=== PATIENT | female | born 1985 | race Caucasian/White ===

== ENCOUNTER 2018-02-01 08:13 | Emergency (ER) | payer BC ==
[2018-02-01 08:42] LABS: Bilirubin Negative (Negative); Blood, Urine Moderate (Negative); Clarity CLEAR (Clear); Glucose, Urine (Dipstick) Negative (Negative); Leukocyte Small (Negative); Nitrite Negative (Negative); Protein, Urine (Dipstick) Negative (Neg-Trace); Specific Gravity, Urine 1.009 (1.002-1.036); Urobilinogen 0.2 mg/dL (0.2-1.0)
[2018-02-01 08:43] LABS: Pregnancy Test - Urine (BHCG) Negative (Negative); Pregu Control Background? CLEAR/WHITE (CLR/WHITE); Pregu Control Bar Appear? YES (CONTROL BAR); Specific Gravity 1.009 (1.002-1.036)
[2018-02-01 08:44] LABS: Bacteria/HPF Rare-Few HPF (None Seen); Hyaline Casts/LPF 0-3 HYALINE CAST LPF (0-3 Hyaline); Pathc Cast-AUWi Flag 0.27 (0-2.49); RBC/HPF 0-3 HPF (0-3)
[2018-02-01 09:05] LABS: #Eosinphils 0.2 thou/uL (0.0-0.7); #Lymphocytes 1.1 thou/uL (1.20-3.40); #Monocytes 0.5 thou/uL (0.11-0.59); %Basophils 0.3 % (0.0-1.0); %Lymphocytes 7.5 % (21.0-51.0); %Monocytes 3.4 % (0.0-10.0); %Neutrophils 87.7 % (42.0-75.0); Hemoglobin 13.6 g/dL (12.0-16.0); Mean Corpuscular HGB CONC 33.8 g/dL (32.0-36.0); Mean Corpuscular Hemoglobin 30.3 pg (27.0-31.0); Mean Corpuscular Volume 89.7 fl (81.0-99.0); Mean Platelet Volume 6.7 fL (7.4-10.4); Platelet Count 213 thou/uL (130-400); RBC Distribution Width 12.4 % (11.5-14.5); Red Blood Cell (RBC) Count 4.49 mill/uL (4.20-5.40); White Blood Cell (WBC) Count 14.8 thou/uL (4.8-10.8)
[2018-02-01 09:26] LABS: ALT (SGPT) 19 U/L (8-55); AST (SGOT) 21 U/L (5-34); Albumin 4.1 g/dL (3.5-5.0); Alkaline Phosphatase 47 U/L (40-150); Anion Gap 11 mmol/L (10-20); BUN (Urea Nitrogen) 8 mg/dL (7.0-18.7); Bilirubin, Total 0.7 mg/dL (0.2-1.2); Calc. Creatinine Clearance 0 mL/min (70-130); Calcium 8.8 mg/dL (7.8-10.44); Carbon Dioxide 21 mmol/L (22-29); Chloride 108 mmol/L (98-107); Estimated GFR-MDRD 90; Globulin 2.4 g/dL (2.4-3.5); Glucose 95 mg/dL (70-105); Potassium 3.8 mmol/L (3.5-5.1); Protein, Total 6.5 g/dL (6.0-8.3); Sodium 136 mmol/L (136-145)
[2018-02-01] MEDS ORDERED: Morphine 4 MG/ML VIAL ONE (09:47)
--- NOTE | 2018-02-01 10:56 | ULT ---
PELVIC ULTRASOUND INCLUDING TRANSABDOMINAL AND TRANSVAGINAL AND VASCULAR DUPLEX WITH COLOR AND SPECTR LA DOPPLER IMAGING: HISTORY: A 32-year-old female with a history of pain. History of a mass on a prior CT. FINDINGS: The uterus measures 8.8 x 4.7 x 5.2 cm in size. Endometrium is 1.2 cm in thickness. The right ovary measures 2.0 x 2.9 x 3.1 cm. The left ovary measures 1.6 x 1.9 x 1.8 cm. There is some cul-de-sac fluid. Vascular duplex with color and spectral Doppler imaging demonstrates arterial inflow and venous outfl ow. No evidence for ovarian torsion. IMPRESSION: Some free cul-de-sac fluid. No evidence of solid or cystic mass. No evidence for a right ovarian or right adnexal mass. POS: [facility]
--- NOTE | 2018-02-01 11:27 | CT ---
CT ABDOMEN AND PELVIS: Date: 02/01/18 COMPARISON: None. HISTORY: Pain. TECHNIQUE: Serial axial CT imaging at 5 mm intervals from lung bases through pubic symphysis with IV contrast. C oronal reformatted imaging obtained. FINDINGS: The lack of oral contrast limits assessment of the bowel. Imaged lung bases are unremarkable. Cholecy stectomy clips are present. There is no free intraperitoneal air noted. The hepatic parenchyma is somewhat hypodense, which may signify steatosis. No focal liver lesion. The spleen, pancreas, adrenal glands, and kidneys are unremarkable. There is small volume free fluid in the pelvic cul-de-sac and in the right adnexal region. There is a lso small volume free fluid in the right lower quadrant along the inferior aspect of the right paraco lic gutter. No focal area of bowel inflammatory change or obstruction. Appendix is normal. There is a rim enhancing 1.7 cm structure in the region of the right adnexa/ovary, suggesting a colla psed cyst, possibly recently ruptured given free fluid in the pelvis. Vascular structures appear patent. No lymphadenopathy is seen. Osseous structures demonstrate no worrisome findings. IMPRESSION: Oval rim enhancing 1.7 cm structure in the region of the right ovary/right adnexa. Free fluid in the pelvis. Findings suggest recent right ovarian cyst rupture in the proper clinical context. No evidenc e for bowel obstruction, free intraperitoneal air, or appendicitis. POS: [facility]
[2018-02-01] MEDS ORDERED: HYDROcodone/Acetaminophen 5/325 mg Tablet ONE (12:20)
[2018-02-01] MEDS ORDERED: ISOVUE-370 76%-LOCM 1 ML ONE (13:34)
== END 2018-02-01 12:50 | disposition home or self-care (01) ==
LOC: ERS 08:13
DX: N83.201 Unspecified ovarian cyst, right side (principal); F17.210 Nicotine dependence, cigarettes, uncomplicated
CPT/HCPCS: 36415; 74177; 76856; 80053; 81003; 81015; 81025; 85025; 87086; 96374; J2270

== ENCOUNTER 2018-07-03 22:45 | Observation (INO) | payer BC ==
[2018-07-03 23:56] LABS: Troponin I Less than 0.010 ng/mL (< 0.028)
[2018-07-04] MEDS ORDERED: Ondansetron ODT 4 MG TAB SL PRN (02:04)
[2018-07-04] MEDS ORDERED: Ondansetron HCl/PF 4 MG/2 ML Vial IVP PRN ×2 (02:04→10:30)
[2018-07-04] MEDS ORDERED: Sodium Chloride 0.9% 1,000 ML IV SCH (02:04)
[2018-07-04] MEDS: Acetaminophen 325 MG TAB PO PRN ×2 (02:48→08:06)
[2018-07-04 02:56] LABS: Troponin I Less than 0.010 ng/mL (< 0.028)
[2018-07-04 03:22] VITALS: BMI 25.2
[2018-07-04 06:06] LABS: Troponin I 0.011 ng/mL (< 0.028)
[2018-07-04] MEDS ORDERED: Ondansetron ODT 4 MG TAB PO PRN (10:30)
[2018-07-04] MEDS ORDERED: Acetaminophen 500 MG TAB PO PRN (10:30)
--- NOTE | 2018-07-04 11:06 | HP ---
DATE OF ADMISSION: 07/04/2018 PRIMARY CARE PROVIDER: [place] vee. CHIEF COMPLAINT: Chest pain. HISTORY OF PRESENT ILLNESS: This is a 33-year-old female who presents to [facility] Emergency Department after complaining of central chest pain with radiation into the left jaw occurring in the last 24 hours. The patient states she was shopping at [employer], doing shop ping at [employer], once symptoms began stopping her from shopping. The patient states she rested on a chair as the pain lasted for approximately 5 minutes. The patient denied any nausea, vomiting, diaph oresis or left arm discomfort. The patient denies any cough, congestion, fever or exposure history. Patient states she left this store aside in her car at which symptoms resolved. The patient denied any recent trauma, injury, but does admit to increased stress with recent divorce as well as social s tressors at home. The patient initially rated the pain as 9/10. The patient states she did not take any aspirin at the time of her chest pain. The patient does admit to reflux symptoms, which have be en progressive over the last several weeks, taking Tums for relief. The patient has noticed increase d reflux, especially when lying flat or sleeping. The patient denies any strong family history of ea rly coronary artery disease, but does state her mother underwent a repair of a congenital ASD defect in her 30s. The patient denies any unilateral weakness, weight changes, blood in the stool or dysuri a. The patient denies any personal history of arrhythmia or coronary artery disease. In the emergen cy room, the patient underwent general evaluation, essentially negative troponins, negative cardiac b iomarkers. The patient was referred to the observation unit for evaluation. PAST MEDICAL HISTORY: 1. Gastroesophageal reflux. 2. History of cholelithiasis. PAST SURGICAL HISTORY: 1. Status post cholecystectomy. 2. Status post bilateral tubal ligation. CURRENT MEDICATIONS: Reviewed and negative. ALLERGIES: No known drug allergies. FAMILY HISTORY: Mother with ASDD, congenital defect repaired in her 30s. SOCIAL HISTORY: The patient recently . Occasional alcohol use. Smokes up to a pack of ciga rettes daily. No illicit drug use. Has 2 children. REVIEW OF SYSTEMS: The following complete review of systems was negative, unless otherwise mentioned in the HPI or below: Constitutional: Weight loss or gain, ability to conduct usual activities. Skin: Rash, itching. Eyes: Double vision, pain. ENT/Mouth: Nose bleeding, neck stiffness, pain, tenderness. Cardiovascular: Palpitations, dyspnea on exertion, orthopnea. Respiratory: Shortness of breath, wheezing, cough, hemoptysis, fever or night sweats. Gastrointestinal: Poor appetite, abdominal pain, heartburn, nausea, vomiting, constipation, or diarr hea. Genitourinary: Urgency, frequency, dysuria, nocturia. Musculoskeletal: Pain, swelling. Neurologic/Psychiatric: Anxiety, depression. Allergy/Immunologic: Skin rash, bleeding tendency. Otherwise negative except as stated per HPI. PHYSICAL EXAMINATION: VITAL SIGNS: On admission, blood pressure 159/89, pulse 72, respiratory rate 18, temperature 99.3 de grees Fahrenheit, O2 saturation 100% on room air. GENERAL APPEARANCE: This is a 33-year-old female, alert and oriented x3, pleasant, convers ant, in no acute distress. HEENT: Pupils are equal, round, and reactive to light and accommodation. Extraocular muscles are in tact. No scleral icterus, no conjunctival injection. Nares patent. OP is clear. Teeth in good rep air. NECK: Supple, no cervical adenopathy, no thyromegaly, no carotid bruits, no JVD appreciated. Cervic al spine with full active and passive range of motion. No meningeal signs appreciated. CHEST: Lungs are clear to auscultation bilaterally. CARDIOVASCULAR: S1 and S2 without noted murmur, rub or gallop. ABDOMEN: Rounded, soft, nontender, nondistended. Bowel sounds are positive in all four quadrants. There is no hepatosplenomegaly, no abdominal bruits, no rebound or guarding appreciated. EXTREMITIES: Warm and dry with fair turgor. No clubbing, cyanosis or asymmetric edema appreciated. Pulses palpable distally at the dorsalis pedis, posterior tibial, and popliteal arteries bilaterally . Capillary refill is less than 2 seconds. NEUROLOGIC: Cranial nerves II-XII are grossly intact. No focal or lateralizing signs appreciated. PERTINENT LABORATORY DATA AND X-RAY FINDINGS: Potassium 3.3, magnesium 2.3. LFTs within normal limi ts. Troponin I negative x3. TSH 1.13. CBC within normal limits. Portable chest x-ray dated 2017 showed no acute cardiopulmonary process. EKG dated 07/03/2018 by my interpretation shows sinus tachycardia with heart rates in the low 100s. Normal R-wave progression noted in the precordial lead s. Isolated T-wave inversion in leads III and F. ASSESSMENT AND PLAN: 1. Chest pain. Patient will be observed on the telemetry unit. Initial serial cardiac enzymes nega tive x3. We will proceed with exercise treadmill stress testing. No current evidence to suggest acu te coronary syndrome. 2. Gastroesophageal reflux. Initiate Pepcid 20 mg p.o. b.i.d. Likely the patient will benefit from proton pump inhibitor on discharge. 3. Tobacco use. We will offer smoking cessation resources prior to discharge. 4. Hypokalemia. Mild, potassium supplementation. 5. Prophylaxis. Sequential compression devices while in bed. Pepcid 20 mg p.o. b.i.d. 6. Code status is FULL. Surrogate medical decision maker is the patient's mother.
[2018-07-04 15:28] VITALS: BP 110/69; TEMP 97.7
[2018-07-04] MEDS ORDERED: Famotidine 20 MG TAB PO SCH (21:00)
--- NOTE | 2018-07-04 23:33 | DIS ---
DATE OF ADMISSION: 07/04/2018 DATE OF DISCHARGE: 07/04/2018 DISCHARGE DIAGNOSES: 1. Chest pain, atypical, noncardiac. 2. Gastroesophageal reflux. 3. Tobacco use. 4. Hypokalemia, mild. CONSULTATIONS: None. PERTINENT LABORATORY AND X-RAY FINDINGS: Potassium is 3.3. Troponin I is negative x4. TSH is 1.13. LFTs are within normal limits. Portable chest x-ray dated 07/03/2018 showed no acute cardiopulmona ry process. HOSPITAL COURSE: The patient was observed on the telemetry unit after initially presenting with ches t pain. Serial cardiac biomarkers were negative x4 as stated previously. The patient proceeded with performing a Apollo protocol graded exercise treadmill test with negative EKG changes. The patient h ad normal blood pressure and heart rate response achieving 87% of maximal age-predicted heart rate. Telemetry monitoring showed sinus mechanism without evidence of acute arrhythmia or dysrhythmia. The patient's presentation consistent with gastroesophageal reflux and likely esophageal spasm. Current recommendations are to initiate Protonix 40 mg daily. I have examined the patient at the time of goyo soto and discussed followup instructions. The patient is overall clinically stable and ready for discharge on 07/04/2018. DISCHARGE MEDICATIONS: Protonix 40 mg 1 tab p.o. daily. FOLLOWUP: The patient is to follow up with her primary care provider of choice in [place], [place] as needed. CONDITION ON DISCHARGE: Stable. ACTIVITY: Ad eri. DIET: Regular. CODE STATUS: FULL. DISPOSITION: Home, 07/04/2018.
--- NOTE | 2018-07-10 10:49 | STRESS ---
Acquisition Time: 2018-07-04 12:36:12 Total Exercise Time: 00:09:00 Test Indications: CHEST PAIN Medications: Protocol: RUI Max HR: 164 BPM 87% of Pred: 188 BPM Max BP: 138/088 mmHG Max Work Load: 10.1 METS RESTING ECG: NORMAL SINUS RHYTHM AT 84 BPM SYMPTOMS: DYSPNEA ON EXERTION NORMAL BP RESPONSE ECTOPY: NONE ECG STRESS: NO SIGNIFICANT CHANGES INTERPRETATION: NEGATIVE EXERCISE TREADMILL TEST ECG COMMENTS: EXERCISE 9 MINUTES/ PEAK HEART RATE 162 BPM Confirmed by MAREK PRADO ([id number]), editor publications DUONG TEMPLETON ([id number]) on 07/10/2018 10:48:34 AM Referred By: MD Elaina STEVENS Confirmed By:MAREK PRADO
== END 2018-07-04 18:00 | disposition home or self-care (01) ==
LOC: ERS 22:45 → 2SW 07-04 01:32
PROVIDERS: ADMIT Hospitalist; ATTEND Hospitalist
DX: R07.89 Other chest pain (principal); K21.9 Gastro-esophageal reflux disease without esophagitis; E87.6 Hypokalemia; F17.210 Nicotine dependence, cigarettes, uncomplicated; Z79.899 Other long term (current) drug therapy
CPT/HCPCS: 36415; 84484; 93005; 93017; 94760; A4216; G0378

== ENCOUNTER 2020-12-03 08:01 | Outpatient (CLI) | payer BC ==
[2020-12-03 18:22] LABS: BHCG - Serum Negative (NEGATIVE); Pregs Control Background? CLEAR/WHITE (CLR/WHITE); Pregs Control Bar Appear? YES (CONTROL BAR)
[2020-12-04 02:57] LABS: SARS-CoV-2 MS2 Positive; SARS-CoV-2 N Gene Negative; SARS-CoV-2 S Gene Negative; SARS-CoV-2 by NAA Not Detected (NotDetected); SARS-CoV-2 orf1ab Negative
== END 2020-12-03 08:02 | disposition home or self-care (01) ==
LOC: LABBT 08:01
PROVIDERS: ATTEND Obstetrics & Gynecology
DX: Z01.812 Encounter for preprocedural laboratory examination (principal); Z20.822 Contact with and (suspected) exposure to COVID-19; N80.0 Endometriosis of uterus
CPT/HCPCS: 84703; 87635; U0003; U0005

== ENCOUNTER 2020-12-08 05:44 | Day surgery (SDC) | payer OTHER ==
[2020-12-07 09:44] VITALS: BMI 24.7
--- NOTE | 2020-12-08 05:51 | HP ---
REASON FOR ADMISSION: Total laparoscopic hysterectomy, bilateral salpingectomy for dyspareunia, dysmenorrhea, history of dysplasia, and probable adenomyosis. HISTORY OF PRESENT ILLNESS: Ms. Pastrana is a 35-year-old 2, para 2, status post BTL with a history of dysplasia in the past. She has persistent dyspareunia, dysmenorrhea, consistent with adenomyosis, unresponsive to conservative management. She desires definitive surgical management. 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 History of dysplasia in the past, none recently. History of genital herpes, on acyclovir. She has had a LEEP back in 2004. She is status post BTL, status post x2. SURGICAL HISTORY: LEEP, tubal ligation, and cholecystectomy. MEDICAL HISTORY: Genital herpes. MEDICATIONS: Valtrex, fluoxetine, and Atrovent. ALLERGIES: NONE. SOCIAL HISTORY: Positive tobacco use. Denies alcohol or IV drug abuse. FAMILY HISTORY: Noncontributory. REVIEW OF SYSTEMS: Noncontributory. PHYSICAL EXAMINATION: GENERAL: White female, height 5 feet 3 inches, weight 140, BMI 24.6, blood pressure 130/80, pulse 58, respirations 18. HEENT: Within normal limits. LUNGS: Clear to auscultation bilaterally. HEART: Regular rate and rhythm. BREASTS: No masses bilaterally. ABDOMEN: Soft, nontender. No rebound or guarding. GENITOURINARY: Vulva without lesions. Vagina without discharge. Cervix, parous. Uterus, anteverted, slightly boggy, 6-week size, and tender. Adnexa, no masses. EXTREMITIES: No clubbing, cyanosis, or edema. DIAGNOSTIC DATA: Ultrasound as noted, findings consistent with adenomyosis with a 75 g uterus. No adnexal masses noted. Pap negative. GC, chlamydia negative at [facility] 2019. IMPRESSION: Persistent dyspareunia and dysmenorrhea suggestive of adenomyosis with status post permanent sterilization. PLAN: Discussed with the patient options including endometrial ablation, medical treatment and hysterectomy. Patient desires hysterectomy. We will proceed with total laparoscopic hysterectomy with da Gabriella and bilateral salpingectomy. The patient understands risks and benefits of procedure including bleeding, infection, and trauma to pelvic organs. She gives verbal and written informed consent for the procedure. Anticipate same-day discharge. Job ID: [id number]
[2020-12-08] MEDS ORDERED: Gabapentin 300 MG CAP ONE (06:12)
[2020-12-08] MEDS ORDERED: CeleCOXIB 100 MG CAP ONE (06:12)
[2020-12-08] MEDS ORDERED: Famotidine/PF 20 mg/2ml Vial ONE (06:12)
[2020-12-08] MEDS ORDERED: Midazolam HCl 2 mg/2 ml Vial ONE (06:35)
[2020-12-08] MEDS ORDERED: Fentanyl 100 MCG/2 ML VIAL ONE ×2 (06:35→09:13)
[2020-12-08 06:38] LABS: Hemoglobin 13.9 g/dL (12.0-16.0); Mean Corpuscular HGB CONC 34.1 g/dL (32.0-36.0); Mean Corpuscular Volume 90.9 fL (78.0-98.0); Mean Platelet Volume 7.3 fL (7.4-10.4); Platelet Count 241 thou/uL (130-400); RBC Distribution Width 12.4 % (11.5-14.5); Red Blood Cell (RBC) Count 4.49 mill/uL (4.20-5.40); White Blood Cell (WBC) Count 5.7 thou/uL (4.8-10.8)
[2020-12-08] MEDS ORDERED: Bupivacaine PF 0.5% 30 ML VIAL ONE (06:38)
[2020-12-08] MEDS ORDERED: EPINEPHrine 1 MG/ML AMP ONE (06:38)
[2020-12-08] MEDS ORDERED: Ondansetron PF 4 MG/2 ML Vial IVP PRN (08:51)
[2020-12-08] MEDS ORDERED: Promethazine HCl 25 MG/ML VIAL IM PRN (08:51)
[2020-12-08] MEDS ORDERED: Morphine 2 MG/ML VIAL SLOW IVP PRN (08:51)
[2020-12-08] MEDS ORDERED: Morphine 4 MG/ML VIAL SLOW IVP PRN (08:51)
[2020-12-08] MEDS ORDERED: traMADol HCl 50 MG TAB PO PRN (08:51)
[2020-12-08] MEDS ORDERED: Bisacodyl 10 MG SUPP PR PRN (08:51)
[2020-12-08] MEDS ORDERED: Simethicone Chewable 80 MG TAB PO PRN (08:51)
[2020-12-08] MEDS ORDERED: HYDROcodone/Acetaminophen 5/325 mg Tablet PO PRN ×2 (08:51)
[2020-12-08] MEDS ORDERED: diphenhydrAMINE 25 MG CAP PO PRN (08:51)
[2020-12-08] MEDS ORDERED: Sodium Chloride 0.9% 1,000 ML IV SCH (09:00)
[2020-12-08] MEDS ORDERED: Lidocaine 1% PF 5 ML VIAL ONE (09:12)
[2020-12-08] MEDS ORDERED: Dexamethasone 20 MG/5 ML VIAL ONE (09:12)
[2020-12-08] MEDS ORDERED: Glycopyrrolate 0.2 MG/ML 5 ML SYRINGE ONE (09:12)
[2020-12-08] MEDS ORDERED: Ondansetron PF 4 MG/2 ML Vial ONE (09:12)
[2020-12-08] MEDS ORDERED: Rocuronium Bromide 10 MG/ML (10ML VIAL) ONE (09:12)
[2020-12-08] MEDS ORDERED: Ketorolac Tromethamine 30 MG/ML VIAL ONE (09:12)
[2020-12-08] MEDS ORDERED: PROPOFOL 200 MG/20 ML VIAL ONE (09:12)
[2020-12-08] MEDS ORDERED: HYDROcodone/Acetaminophen 5/325 mg Tablet ONE (10:41)
--- NOTE | 2020-12-08 10:58 | OP ---
DATE OF PROCEDURE: 12/08/2020 PREOPERATIVE DIAGNOSES: Dysmenorrhea, dyspareunia, menorrhagia, suspected adenomyosis. POSTOPERATIVE DIAGNOSES: Dysmenorrhea, dyspareunia, menorrhagia, suspected adenomyosis. PROCEDURES PERFORMED: Total laparoscopic hysterectomy, bilateral salpingectomy. EMPLOYMENT EVALUATOR/CASE MANAGER: Matilda Patiño PA-C. ANESTHESIA: General endotracheal. ESTIMATED BLOOD LOSS: 50 mL. MEDICATIONS: 2 g Ancef, pre-incision DVT prophylaxis, SCDs. DRAINS: Lindsey to gravity. OPERATIVE FINDINGS: 1. Approximately 6- to 8-week size uterus consistent with adenomyosis. 2. Status post BTL. 3. Normal-appearing ovaries. 4. Hemostasis, clear urine. COUNTS: Correct at the end of the procedure. DISPOSITION: Recovery room in good condition. DESCRIPTION OF PROCEDURE: After obtaining appropriate informed consent, patient was taken to the operating room, where general endotracheal anesthesia achieved without difficulty. She was prepped and draped in dorsal lithotomy position in Hayden stirrups. Sliding speculum placed. Vagina after placing a Lindsey catheter draining approximately 50 mL of clear urine. Attaching it to a 60 mL syringe. Cervix was identified and grasped with single-toothed tenaculum. It sounded to 8 cm. The NEY was placed with a 4 cm vaginal yarn packer and a 6 cm obturator. The tenaculum and speculum were removed. The tufting machine operator single needle changed his gloves turned to abdominal portion of the procedure. A 5 mL of Marcaine injected to the inferior aspect of the umbilicus. A 10 mm skin incision made, Veress needle placed in the abdominal cavity. Insufflation was carried out with carbon dioxide, maximum pressure of 15, volume approximately 3 L. A 12 mm non cutting Juan trocar was placed without difficulty and confirmation entry into the peritoneal cavity was noted without trauma to the underlying viscera. The patient is placed in steep Trendelenburg and the da Gabriella assisted ports placed right and left and an medical library assistant port 11 mm in the right upper quadrant. Da Gabriella was docked with monopolar scissors in the right hand and bipolar fenestrated forceps in the left. Mobilization of the pelvic organs was carried out. The distal aspect of the left fallopian tube was coagulated along the mesosalpinx and transected and removed. The utero-ovarian, broad and round ligament were then coagulated and transected on this side. This was taken down to the level of the internal cervical os. Vesicouterine peritoneum was incised sharply and dissected off cervix, lower uterine segment and upper vagina. Skeletonization of the uterine vessels carried out on the left, ureter noted to be well lateral to the surgical field. Vessels coagulated and transected. Dissection was carried through the tissue all the way down to the level of the upper vagina. Attention was turned to the right where the identical procedure was carried out again removing the distal fallopian tube coagulating and transecting the utero-ovarian, broad and round, going down to the level of the internal cervical os and incising the vesicouterine peritoneum. The bladder was dissected down all the way and was backfilled to assure its was below the level of the surgical field. Skeletonization of the uterine vessels was carried out and the ureter was identified well lateral to the surgical field. Uterine vessels were coagulated and transected. The vagina was entered anteriorly at 12 o'clock and this was carried from 12 to 9 and 12 to 3 and then from 3 to 6 and 9 to 6 amputating the specimens pulled in the vagina to maintain pneumoperitoneum. Suction irrigation was carried out. The monopolar scissors were placed with a Mao Needle Dial Painter on the right hand, good hemostasis was noted along the cuff and was closed using a running continuous 2-0 PDS StrataFix from right to left and then back to right in a 2-layer closure technique. Suction irrigation was carried out and good hemostasis noted across all alegre. Tisseel was placed across all surgical alegre. At this point in time, the da Gabriella instruments were removed. The da Gabriella undocked. The patient levelled out, the abdomen desufflated of carbon dioxide. Trocars removed x4. Fascia was reapproximated at the level of the umbilicus using an 0 Vicryl on a UR5 needle and skin reapproximated x4 using 4-0 Monocryl and Dermabond. The vagina was inspected and noted to be dry and intact at the apex. The patient was awakened and extubated and taken to recovery room in good condition. Anticipation discharge home this afternoon. Job ID: [id number]
[2020-12-08] MEDS ORDERED: B & O ONE (11:15)
== END 2020-12-08 12:25 | disposition home or self-care (01) ==
LOC: SDC 05:44
PROVIDERS: ATTEND Obstetrics & Gynecology
PROC: 0UT94ZZ Resection of Uterus, Percutaneous Endoscopic Approach (ICD-10-PCS; principal; 2020-12-08)
PROC: 0UT74ZZ Resection of Bilateral Fallopian Tubes, Percutaneous Endoscopic Approach (ICD-10-PCS; principal; 2020-12-08)
DX: N72 Inflammatory disease of cervix uteri (principal); N94.89 Other specified conditions associated with female genital organs and menstrual cycle; N94.10 Unspecified dyspareunia; N94.6 Dysmenorrhea, unspecified; A60.00 Herpesviral infection of urogenital system, unspecified; F17.200 Nicotine dependence, unspecified, uncomplicated; Z79.899 Other long term (current) drug therapy
CPT/HCPCS: 85027; 86850; 86900; 86901; 88307; J0171; J0690; J1100; J1885; J2250; J2405; J2704; J3010; S0020; S0028

== ENCOUNTER 2024-05-15 13:49 | Emergency (ER) | payer OTHER ==
[2024-05-15] MEDS ORDERED: Acetaminophen 500 MG TAB ONE (15:56)
[2024-05-15] MEDS ORDERED: Metoclopramide HCl 10 MG (2 mL) VIAL ONE (15:57)
[2024-05-15] MEDS ORDERED: diphenhydrAMINE 50 MG/ML VIAL ONE (15:57)
[2024-05-15 16:00] LABS: #Basophils 0.06 10x3/uL (0.0-0.2); %Eosinophils 3.7 % (0.0-10.0); %Lymphocytes 29.6 % (21.0-51.0); %Monocytes 7.7 % (0.0-10.0); %Neutrophils 57.8 % (42.0-75.0); Hematocrit 40.3 % (36.0-47.0); Hemoglobin 14.3 g/dL (12.0-16.0); Mean Corpuscular HGB CONC 35.5 g/dL (32.0-36.0); Mean Corpuscular Hemoglobin 31.2 pg (27.0-31.0); Mean Platelet Volume 9.6 fL (7.4-10.4); Platelet Count 200 10x3/uL (130-400); RBC Distribution Width 13.4 % (11.5-14.5); Red Blood Cell (RBC) Count 4.58 mill/uL (4.20-5.40)
[2024-05-15 16:12] LABS: BHCG - Serum Negative (NEGATIVE); Pregs Control Background? CLEAR/WHITE (CLR/WHITE); Pregs Control Bar Appear? YES (CONTROL BAR)
[2024-05-15 16:18] LABS: ALT (SGPT) 48 U/L (8-55); AST (SGOT) 38 U/L (5-34); Albumin 4.4 g/dL (3.5-5.0); Alkaline Phosphatase 56 U/L (40-110); Anion Gap 15 mmol/L (10-20); BUN (Urea Nitrogen) 8 mg/dL (7.0-18.7); Bilirubin, Total 0.9 mg/dL (0.2-1.2); Calc. Creatinine Clearance 0 mL/min (70-130); Calcium 9.7 mg/dL (7.8-10.44); Carbon Dioxide 22 mmol/L (22-29); Chloride 104 mmol/L (98-107); Estimated GFR 103; Globulin 3.2 g/dL (2.4-3.5); Glucose 76 mg/dL (70-105); Potassium 3.7 mmol/L (3.5-5.1); Protein, Total 7.6 g/dL (6.0-8.3); Sodium 137 mmol/L (136-145)
[2024-05-15 16:23] LABS: Troponin I Less than 0.010 ng/mL (< 0.028)
== END 2024-05-15 17:06 | disposition home or self-care (01) ==
LOC: ERS 13:49
DX: S00.03XA Contusion of scalp, initial encounter (principal); I10 Essential (primary) hypertension; F17.210 Nicotine dependence, cigarettes, uncomplicated; Z79.899 Other long term (current) drug therapy; W01.10XA Fall on same level from slipping, tripping and stumbling with subsequent striking against unspecified object, initial encounter
CPT/HCPCS: 70450; 80053; 84484; 84703; 85025; 93005; 96374; 96375; J1200; J2765

== ENCOUNTER 2024-12-10 13:37 | Emergency (ER) | payer OTHER ==
[2024-12-10 13:59] LABS: #Basophils 0.06 10x3/uL (0.0-0.2); %Basophils 0.7 % (0.0-1.0); %Eosinophils 3.6 % (0.0-10.0); %Lymphocytes 18.3 % (21.0-51.0); %Monocytes 6.3 % (0.0-10.0); %Neutrophils 70.9 % (42.0-75.0); Hematocrit 44.3 % (36.0-47.0); Hemoglobin 15.4 g/dL (12.0-16.0); Mean Corpuscular HGB CONC 34.8 g/dL (32.0-36.0); Mean Corpuscular Volume 89.3 fL (78.0-98.0); Mean Platelet Volume 9.4 fL (7.4-10.4); Platelet Count 254 10x3/uL (130-400); Red Blood Cell (RBC) Count 4.96 mill/uL (4.20-5.40)
[2024-12-10 14:09] LABS: Bacteria/HPF 1+ HPF (None Seen); Bilirubin Negative (Negative); Blood, Urine Negative (Negative); CAUTI Indications for Culture Pelvic or flank pain; Clarity Turbid (Clear); Glucose, Urine (Dipstick) Normal (Negative); Ketone, Urine Trace mg/dL (Negative); Leukocyte Negative Leu/uL (Negative); Nitrite Negative (Negative); Pregnancy Test - Urine (BHCG) Negative (Negative); Pregu Control Background? CLEAR/WHITE (CLR/WHITE); Pregu Control Bar Appear? YES (CONTROL BAR); Protein, Urine (Dipstick) 50 mg/dL (Neg-Trace); RBC/HPF 0-3 HPF (0-3); Specific Gravity 1.036 (1.002-1.036); Specific Gravity, Urine 1.036 (1.002-1.036); WBC/HPF 0-3 HPF (0-3)
[2024-12-10 14:10] LABS: Urine Culture Reflex No No
[2024-12-10 14:32] LABS: Anion Gap 12 mmol/L (10-20); BUN (Urea Nitrogen) 7 mg/dL (7.0-18.7); Calc. Creatinine Clearance 0 mL/min (70-130); Calcium 9.3 mg/dL (7.8-10.44); Carbon Dioxide 26 mmol/L (22-29); Chloride 106 mmol/L (98-107); Estimated GFR 100; Glucose 97 mg/dL (70-105); Sodium 141 mmol/L (136-145)
[2024-12-10] MEDS ORDERED: Ketorolac Tromethamine 30 MG (1 mL) VIAL ONE (15:42)
[2024-12-10] MEDS ORDERED: Ondansetron PF 4 MG/2 ML Vial ONE (15:42)
[2024-12-10] MEDS ORDERED: Dicyclomine 20 MG TAB ONE (17:27)
== END 2024-12-10 17:32 | disposition home or self-care (01) ==
LOC: ERS 13:37
DX: K52.9 Noninfective gastroenteritis and colitis, unspecified (principal); I10 Essential (primary) hypertension; F17.210 Nicotine dependence, cigarettes, uncomplicated
CPT/HCPCS: 36415; 74176; 80048; 81001; 81025; 83690; 85025; 96374; 96375; J1885; J2405